=== PATIENT | female | born 1970 | race Caucasian/White ===

== ENCOUNTER → 2018-05-09 | Outpatient (CLI) | payer OTHER ==
[~2018-05-09] MED LIST: ACET325T26 PO; DIAZ2TAB3 PO; DIPH25CA61 PO; DOCU100T3 PO; ESTR30CR VG; FEXO180T72 PO; MULT-658 PO; NARA2.5T8 PO; PARO7.5C PO
== END | disposition home or self-care (01) ==
LOC: CFH 14:00
PROVIDERS: ATTEND Family Medicine
DX: M41.84 Other forms of scoliosis, thoracic region (principal); J20.9 Acute bronchitis, unspecified
CPT/HCPCS: 71046

== ENCOUNTER 2020-03-05 10:07 | Outpatient (CLI) | payer OTHER | END 2020-03-05 23:59 | disposition home or self-care (01) | LOC: CFH 10:07 | PROVIDERS: ATTEND Obstetrics & Gynecology | DX: Z12.31 Encounter for screening mammogram for malignant neoplasm of breast (principal) | CPT/HCPCS: 76641; 77063; 77067 ==